=== PATIENT | female | born 1955 | race Caucasian/White ===

== ENCOUNTER 2018-05-03 18:53 | Emergency (ER) | payer OTHER ==
[~2018-05-03] VITALS: Ht 152.4 cm; Wt 73.2 kg
[2018-05-03 18:59] VITALS: TEMP 36.8; Ht 152.4 cm; Wt 73.2 kg
[2018-05-03] MEDS ORDERED: MoRPHine SULFATE 2 MG/ML CARP IV STA (19:12)
[2018-05-03] MEDS ORDERED: ONDANSETRON INJ 2 MG/ML 2 ML VIAL IV STA (19:12)
[2018-05-03] MEDS ORDERED: OPTIRAY 320 IV PRN (19:15)
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
[2018-05-03 19:32] LABS: ISTAT CREATININE 1.1 mg/dl (0.6-1.3); ISTAT IONIZED CALCIUM 1.1 mmol/l (1.12-1.32); ISTAT POTASSIUM 4.9 mEq/L (3.3-5.0)
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
[2018-05-03] MEDS ORDERED: MoRPHine SULFATE 4 MG/ML 1 ML CARP\\VIAL IV STA ×3 (20:32→23:34)
[2018-05-03 20:55] VITALS: O2SAT 96
[2018-05-03 21:15] LABS: BASO % 0.1 %; BASO ABS # 0.02 K/uL (0-0.2); EOS % 0.4 %; EOS ABS # 0.07 K/uL (0-0.5); HEMATOCRIT 35.4 % (37-47); HEMOGLOBIN 12.7 g/dL (12.0-16.0); IG# 0.12 K/uL (0.00-0.02); LYMPH % 5.2 %; LYMPH ABS # 0.86 K/uL (1.2-3.4); MEAN CELL VOLUME 86.8 fL (80-100); MEAN CORPUSCULAR HEMOGLOBIN 31.1 pg (25-34); MEAN CORPUSCULAR HGB CONC 35.9 g/dl (32-36); MONO % 6.6 %; MONO ABS # 1.09 K/uL (0.11-0.59); NEUT ABS # 14.29 K/uL (1.4-6.5); PLATELET COUNT 181 K/uL (130-400); RED CELL DISTRIBUTION WIDTH CV 13.9 % (11.5-14.5); RED CELL DISTRIBUTION WIDTH SD 43.9 fL (36.4-46.3); WHITE BLOOD COUNT 16.45 K/uL (4.8-10.8)
[2018-05-03] MEDS ORDERED: LEVO75TA PO (21:32)
[2018-05-03] MEDS ORDERED: HYZ/50125 PO (21:32)
[2018-05-03] MEDS ORDERED: PANT40TA PO (21:32)
[2018-05-03] MEDS ORDERED: ATOR10TA82 PO (21:32)
[2018-05-03] MEDS ORDERED: ALPR0.25 PO (21:32)
[2018-05-03] MEDS ORDERED: METO50TA16 PO (21:32)
[2018-05-03] MEDS ORDERED: DULO60CA44 PO (21:32)
[2018-05-03 22:03] LABS: ALBUMIN 3.6 gm/dl (3.4-5.0); CALCIUM 8.7 mg/dl (8.5-10.1); CREATININE 1.07 mg/dl (0.60-1.20); POTASSIUM 3.4 mmol/L (3.5-5.1); TOTAL PROTEIN 6.8 gm/dl (6.4-8.2)
[2018-05-03 23:38] VITALS: BP 149/98; PULSE 104; O2SAT 100
== END 2018-05-04 00:19 | disposition short-term general hospital (02) ==
LOC: C.EDA 18:55
DX: S22.43XA Multiple fractures of ribs, bilateral, initial encounter for closed fracture (principal); S22.22XA Fracture of body of sternum, initial encounter for closed fracture; S32.10XA Unspecified fracture of sacrum, initial encounter for closed fracture; S20.211A Contusion of right front wall of thorax, initial encounter; S20.222A Contusion of left back wall of thorax, initial encounter; S30.1XXA Contusion of abdominal wall, initial encounter; S80.01XA Contusion of right knee, initial encounter; S80.02XA Contusion of left knee, initial encounter; S83.91XA Sprain of unspecified site of right knee, initial encounter; S27.0XXA Traumatic pneumothorax, initial encounter; V43.52XA Car driver injured in collision with other type car in traffic accident, initial encounter; Y92.488 Other paved roadways as the place of occurrence of the external cause; I10 Essential (primary) hypertension; Z88.1 Allergy status to other antibiotic agents; Z88.8 Allergy status to other drugs, medicaments and biological substances; Z79.899 Other long term (current) drug therapy